=== PATIENT | male | born 1965 | race Caucasian/White ===

== ENCOUNTER 2025-02-28 10:18 | Day surgery (SDC) | payer BC, SELFPAY ==
--- OUTSIDE RECORDS SUMMARY | 2025-01-19 10:15 | XMS_ITS ---
Author Organization [facility] Address [address] [place] [phone] Care Team Providers Care Sight Mounter Name Role Phone Omar Sullivan Primary Care Provider Carlos Pratt Jr REASON FOR VISIT COLON SCREENING Encounters Encounter Location Date Provider Diagnosis [facility] [address] [facility] [address] [place] [phone] 01/19/2025 Carlos Peña Jr Plan Of Treatment Next Appt Details Provider Name:Carlos hargrove Jr, 02/10/2025 07:30:00 AM, [address] [place] [address] , [place], [place], [phone], Progress Notes * ANGELMICAELA WEAVER FDOB: [birth year] (59 yo M)Acc No.[id number]:01/19/2025 Progress Notes Patient: MICAELA PANDEY Provider: Flory Peña MD :1965 A ge:59 Y S ex:Male Date:01/19/2025 Address:[address] [place], [place] [id number] Pcp:Omar Sullivan Subjective: * Chief Complaints: * 1 . COLON SCREENING. * Medical History: Objective: * Vitals: Assessment: Plan: * Treatment: * * The named appointment provid er may or may not be the originator of this progress note, and it is not deemed complete until electronically signed by the appointment provider. Sign off status: Pending * Provider: Flory Peña MD Date: 0 01/19/2025 Generated for Zara eller/Lashawn/Bridgette on: 1 04:21 PM EDT
--- OUTSIDE RECORDS SUMMARY | 2025-02-06 16:22 | XMS_ITS | Clinical Summary ---
Author Organization [facility] Address [address] [place] [address] Care Team Providers Care Needle Maker Name Role Phone Unknown, Primary Care Provider Unavailabl e Social History Tobacco Use Types Packs/Day Years Used Date Smoking Tobacco: Never Assessed Sex and Gender Information Value Date Recorded Sex Assigned at Not on file Gender Identity Not on file Sexual Orientation Not on file Job Start Date Occupation Industry Not on file Not on file Not on file Plan of Treatment Health Maintenance Due Date Last Done Comments Hepatitis C Screening 1965 COVID-19 Vaccine (#1) 03/11/1964 Depression Screening 1975 Preventative Health Evaluation 09/08/1981 DTap / Tdap / Td (1 - Tdap) 09/08/1982 Colon Cancer Screening (Colonoscopy) 09/08/2008 Shingrix-Zoster Vaccine (1 of 2) 09/08/2013 Influenza Vaccine (#1) 2025 RSV Adult > 60+ Yrs or Pregn ant (1 - 1-dose 75+ series) 09/08/2038 Hepatitis B Vaccines Aged Out No long er eligible based on patient's age to complete this topic Pneumococcal Vaccine Aged Out No long er eligible based on patient's age to complete this topic RSV Ped < 20 months Aged Out No longe r eligible based on patient's age to complete this topic Care Teams Needle Maker Relationship Specialty Start Date End Date Unknown, PCP - General 09/24/23
--- OUTSIDE RECORDS SUMMARY | 2025-02-06 16:22 | XMS_ITS | Patient Health Record ---
Author Organization [facility] Address [address] [place] [address] Care Team Providers Care Cleaner Window Name Role Phone Omar Sullivan Primary Care Provider Carlos Pratt Jr Unavailable Allergies Allergen (clinical drug ingredient) Drug/Non Drug Allergy documented on EMR Reaction Allergy Type Onset Date Status Dairy Digestive Unknown Drug Allergy A ctive Reason For Referral No Information Medications Medication SIG (Take, Route, Fr equency, Duration) Notes Start Date End Date Status Loperamide HCl Activ e Social History Tobacco Use: Social History Observation Description Date Details (start date - stop date) Never Smoker NA - NA Tobacco Control (Standard) Question Answer Notes Tobacco use: Nonsmoker AUDIT-C (Standard) Question Answer Notes Did you have a drink contain ing alcohol in the past year? Yes How often did you have a dri nk containing alcohol in the past year? 2 to 3 times a week (3 points) How many drinks did you have on a typical day when you were drinking in the past year? 1 or 2 drinks (0 point) How often did you have six o r more drinks on one occasion in the past year? Never (0 point) Points 3 Interpretation Negative Problems Problem Type SNOMED Code ICD Code Onset Dates Problem Status W/U Status Risk Notes Problem Screening for malignant neoplasm of colon (357287498) Encounter for screening for malignant neoplasm of colon (Z12.11) Active confirmed Problem Colitis (31519939) Colitis (K52.9) Active confirmed Vital Signs Blood pressure diastolic 77 mm Hg 12/22/2024 Height 72 in 12/22/2024 Blood pressure systolic 111 mm Hg 12/22/2024 Weight 225 lbs 12/22/2024 BMI 30.51 kg/m2 12/22/2024 Encounters Encounter Location Date Provider Diagnosis [facility] [address] [place] [address] 12/22/2024 Carlos Peña Jr Encounter for screening for malignant neoplasm of colon Z12.11 and Colitis K52.9 [facility] [address] [place] [phone] 01/05/2025 Carlos Peña Jr Assessments Encounter Date Diagnosis (ICD Code) Assessment Notes Treatment Notes Treatment Clinical Notes Section Notes 12/22/2024 Encounter for screening for malignant neoplasm of colon (ICD-10 - Z12.11) We discussed colitis today. He is due for screening colonoscopy. This will be arranged. Biopsies were reviewed and we will take additional biopsies at the time of this procedure. He will continue loperamide for his symptoms. Follow-up will be pending the results of his procedure. 12/22/2024 Colitis (ICD-10 - K52.9) We discussed colitis today. He is due for screening colonoscopy. This will be arranged. Biopsies were reviewed and we will take additional biopsies at the time of this procedure. He will continue loperamide for his symptoms. Follow-up will be pending the results of his procedure. Plan Of Treatment Future Test Test Name Order Date COLONOSCOPY 12/22/2024 Next Appt Details Provider Name:Carlos hargrove Jr, 02/10/2025 07:30:00 AM, [address] [place] [address] , [place], [place], [phone], Insurance Providers Payer Name Payer Address Payer Phone Subscriber Number Group Number Insured Name Patient Relationship to Insured Coverage Start Date Coverage End Date [facility] [address] [place] [address] [phone] [id number] MICAELA ANGEL Self - patient is the insured Medical (General) History Medical History History ICD Code Nonspecific colitis, diagnos ed in 2002, treated with loperamide, colonoscopy 06/23, mostly in active colitis. BPH
[2025-02-24 12:51] VITALS: BMI 30.5
--- NOTE | 2025-02-24 13:05 | HO.ANESPROP2 ---
HPI - Anesthesia Eval Consult details Narrative: 59yo M for Colonoscopy [facility] Past Medical History Medical History (Updated 02/24/25 @ 12:49 by Torrie Pollack, RN) BPH (benign prostatic hyperplasia) Nonspecific colitis Surgical History Surgical History (Updated 02/24/25 @ 12:48 by Torrie Pollack, RN) History of esophagogastroduodenoscopy (EGD) Hx of colonoscopy (06/2019) Social History Social History (Updated 02/24/25 @ 12:49 by Torrie Pollack RN) Patient Tobacco Use Status: Never used Tobacco Use of substances other than those prescribed or required for medical reasons: No Advance Directives: No Advance Directives Information Provided: Yes Meds Allergies Allergy/AdvReac Type Severity Reaction Status Date / Time lactose Allergy Unknown Verified 02/24/25 12:50 Home Medications ?Medication ?Instructions ?Recorded ?Confirmed ?Last Taken ?Type loperamide 02/24/25 02/24/25 Unknown History Exam Height,Weight and Vital Signs: Height 6 ft Weight 102.058 kg Assessment and Plan Assessment Anesthesia Assessment: Chart Reviewed
[2025-02-28 10:44] VITALS: BP 136/86; PULSE 67; RESP 16; TEMP 36.2; O2SAT 98
[2025-02-28] MEDS: Lactated Ringers 1,000 ML 100 ML IVCONT (10:45)
--- NOTE | 2025-02-28 12:10 | MHC.SHP ---
Pre-Procedural Eval Section A - 24 Hr Update-Section A only Date of Service: 02/28/25 The patient is an INPATIENT: No Changes since office visit: No Cold of Flu in the past 2 weeks, No New Medical Problems, No Changes in Medication and No Patient answered all questions The patient has been examined within 24 hours of the surgical procedure. The History & Physical has been completed within 30 days and I have reviewed it.: Yes Section B - Complete if H&P > 30 days Chief Complaint: screening Allergies: Allergies Allergy/AdvReac Type Severity Reaction Status Date / Time lactose Allergy Unknown Verified 02/24/25 12:50 Plan I have reviewed the history and physical and performed a pertinent physical examination on my patient. No changes have occurred unless specified. Time Spent With Patient Time: Total time managing care of this patient today ____ minutes.
[2025-02-28 12:50] VITALS: BP 107/68; PULSE 69; RESP 16; TEMP 36.1; O2SAT 94
[2025-02-28 13:00] VITALS: BP 113/80; PULSE 71; RESP 18; TEMP 36.6; O2SAT 95
--- NOTE | 2025-03-01 00:03 | OP_ITS ---
DATE OF SERVICE: 02/28/2025 SURGEON: Carlos Peña MD INDICATIONS: Colitis. PREOPERATIVE DIAGNOSIS: POSTOPERATIVE DIAGNOSIS: PROCEDURE PERFORMED: Colonoscopy to the terminal ileum with biopsy. ESTIMATED BLOOD LOSS: COMPLICATIONS: ANESTHESIA: Medications, monitored anesthesia care. ASSISTANTS: SPECIMENS: DESCRIPTION OF PROCEDURE: A history and physical was performed. The risks and benefits of the procedure were explained to the patient. Informed consent was obtained. The patient was placed in the left lateral decubitus position. A digital rectal exam was performed and was found to be normal. The Olympus pediatric video colonoscope was introduced into the rectum and advanced to the cecum. The cecum was identified by transillumination, palpation, and identification of ileocecal valve examination was performed. The scope was removed. He tolerated the procedure well and was returned to recovery area in stable condition. FINDINGS: The terminal ileum was examined and appeared normal. The visualized colonic mucosa was normal. The quality of the prep was good. There was no evidence of active colitis. Biopsies were obtained from the ileum and throughout the colon. Retroflexed examination showed internal hemorrhoids. IMPRESSION: Colitis. RECOMMENDATION: Follow up the biopsy results. MD JEFFREY Bowman/PANKAJL / [id number]
== END 2025-02-28 13:27 | disposition home or self-care (01) ==
PROVIDERS: PCP Internal Medicine; Visit Provider Internal Medicine Gastroenterology
PROC: 0DJD8ZZ Inspection of Lower Intestinal Tract, Via Natural or Artificial Opening Endoscopic (ICD-10-PCS; CPT 45378; principal; 2025-02-28 11:50)
DX: Z12.11 Encounter for screening for malignant neoplasm of colon (principal); K52.9 Noninfective gastroenteritis and colitis, unspecified; K64.8 Other hemorrhoids; N40.0 Benign prostatic hyperplasia without lower urinary tract symptoms; Z91.0110 Allergy to milk products, unspecified; Z79.899 Other long term (current) drug therapy
CPT/HCPCS: 45380; 88305; J2003; J2704